=== PATIENT | male | born 1945 | race Caucasian/White ===

== ENCOUNTER → 2020-04-22 | Outpatient (CLI) | payer MEDICARE, OTHER ==
[~2020-04-22] MED LIST: ASPIR 8181 MG PO; ASPIRIN325 PO; CENTRUM SILVER1 EAC2 PO; DIABETA 1.25M1.25 M1; EFFIENT10 MG PO; GLUCOTROL5 MG PO; IMDUR 30 MG TAB30 M1 PO; JANUVIA100 MG PO; LOPRESSOR; LOPRESSOR50 PO; LOVASTATIN 20 M20 MG PO; MAGOX 400400 MG PO; METFORMIN HCL500 MG PO; NIACIN ER1000 MG PO; NITROGLYCERIN0.4 MG SUBLING; NORCO 5-325 TA1 EACH PO; OMEGA-31000 M1 PO; PERCOCET 5-3251 EACH PO; PIOGLITAZONE15 MG PO; REGLAN 10 MG TA10 MG PO; VITAMIN B-12500 MCG PO; VITAMIN D1000 UNI1 PO; VITAMINC500 PO; WELCHOL 625 MG625 MG PO; WELCHOL3.75 GM
--- NOTE | 2020-04-22 13:12 | 2DMMODE ---
[place] [address] 2 D/M-MODE ECHOCARDIOGRAM Name: KATIE FLORES Room: [facility]#: [id number] Admission: 04/22/20 Attend Phys: Jerry Kingsley Discharge: Date of : 45 Date of Service: 04/22/20 1311 Report #: [id number] THIS REPORT FOR: cc: Werner Kaur Gregory DO Blick,Bossman Lawson MD [facility] ~ APPROVED REPORT Study performed: 04/22/2020 09:44:54 EXAM: Comprehensive 2D, Doppler, and color-flow Echocardiogram Patient Location: Out-Patient BSA: 2.12 HR: 55 bpm BP: 120/72 mmHg Other Information Study Quality: Fair Indications CAD Hypertension/HDD 2D Dimensions IVSd: 11.32 (7-11mm) LVOT Diam: 20.45 (18-24mm) LVDd: 45.98 mm PWd: 8.80 (7-11mm) Ascending Ao: 28.06 (22-36mm) LVDs: 31.91 (25-40mm) Aortic Root: 34.34 mm Volumes Left Atrial Volume (Systole) LA ESV Index: 17.90 mL/m2 Aortic Valve AoV Peak Ashok.: 1.32 m/s AO Peak Gr.: 6.97 mmHg LVOT Max P.00 mmHg AO Mean Gr.: 3.34 mmHg LVOT Mean P.19 mmHg LVOT Max V: 1.12 m/s AO V2 VTI: 28.67 cm LVOT Mean V: 0.67 m/s JULIAN (VTI): 2.77 cm2 LVOT V1 VTI: 24.18 [place] [address] 2 D/M-MODE ECHOCARDIOGRAM Name: KATIE FLORES Room: [facility]#: [id number] Admission: 04/22/20 Attend Phys: Jerry Kingsley Discharge: Date of : 45 Date of Service: 04/22/20 1311 Report #: [id number] E/A Ratio: 1.00 MV Decel. Time: 213.41 ms MV E Max Ashok.: 0.81 m/s MV PHT: 61.89 ms MVA (PHT): 3.55 cm2 TDI E/Lateral E': 8.10 E/Medial E': 9.00 Medial E' Ashok.: 0.09 m/s Lateral E' Ashok.: 0.10 m/s Pulmonary Valve PV Peak Ashok.: 0.84 m/s PV Peak Gr.: 2.84 mmHg Left Ventricle The left ventricle is normal size. There is normal LV segmental wall motion. There is normal left ventricular wall thickness. Left ventricular systolic function is normal. The left ventricular ejection fraction is within the normal range. LVEF is 55-60%. Grade I - abnormal relaxation pattern. Right Ventricle The right ventricle is normal size. The right ventricular systolic function is normal. Atria The left atrium size is normal. The right atrium size is normal. Aortic Valve The aortic valve is normal in structure. No aortic regurgitation is present. There is no aortic valvular stenosis. Mitral Valve The mitral valve is normal in structure. There is trace mitral valve regurgitation noted. No evidence of mitral valve stenosis. Tricuspid Valve The tricuspid valve is normal in structure. There is trace tricuspid valve regurgitation noted. Pulmonic Valve Pulmonic valve is not well visualized. There is no pulmonic valvular regurgitation[place] [address] 2 D/M-MODE ECHOCARDIOGRAM Name: KATIE FLORES Room: [facility]#: [id number] Admission: 04/22/20 Attend Phys: Jerry Kingsley Discharge: Date of : 45 Date of Service: 04/22/20 1311 Report #: [id number] The aortic root is normal in size. IVC is normal in size and collapses >50% with inspiration. Pericardium There is no pericardial effusion. <Conclusion> Left ventricular systolic function is normal. The left ventricular ejection fraction is within the normal range. <ELECTRONICALLY SIGNED> By: Bossman Carrillo MD, [facility] 04/22/201310 10 10 Bossman Carrillo MD, [facility] /INF
== END ==
LOC: M.CRD 09:44
PROVIDERS: ATTEND Internal Medicine
DX: I25.10 Atherosclerotic heart disease of native coronary artery without angina pectoris (principal); I10 Essential (primary) hypertension; Z88.5 Allergy status to narcotic agent

== ENCOUNTER → 2020-11-03 | Outpatient (CLI) | payer MEDICARE, OTHER ==
--- NOTE | 2020-11-03 17:11 | CARDNUC ---
[place] [address] CARDIAC NUCLEAR IMAGING REPORT Name: KATIE FLORES Room: [facility]#: [id number] Admission: 11/03/20 Attend Phys: Dai Bangura, Discharge: Date of : 45 Date of Service: 11/03/20 1711 Report #: [id number] THIS REPORT FOR: cc: Werner Kaur Gregory DO Liston,Suraj Allen MD [facility] ~ APPROVED REPORT Study performed: 11/03/2020 14:21:15 Exam: Nuclear Stress Test Indication: Chest pain, dyspnea s/p PCI. Patient Location: Out-Patient Stress Tech: Ariadne Salas Stress Nurse: Dora Méndez R.N. Ht: 5 ft 10 in Wt: 200 lbs BSA: 2.09 m2 BMI: 28.69 Medical History Medical History: Chest pain, dyspnea, hypokalemia, bradycardia, CAD s/p stent, Hyperlipidemia, HTN, PAD, DM II, past smoker, slow/weak/unsteady gait, back pain, spinal stenosis. Medications: ASA 81 Mg, Clopidogrel, Lovastatin, NTG, Mag-Ox. Allergies: Hydrocodone. Cardiac Risk Factors: Age, DM, FHX of CAD, HTN, Hyperlipidemia, SOB, Past Smoker, PVD. Previous Cardiac Procedures: PCI 2017 Pretest Chest Pain Characteristics: No chest pain Exercise History: Sedentary Physical Disabilities: Weak/slow/unsteady gait. Meds Held (24 hrs): NTG. Stress Test Details Stress Test: Pharmacologic stress testing performed using 0.4 mg of regadenoson per 5 mL given IV over 10 seconds. Reason for pharmacologic stress test: Weak/slow/unsteady gait.. HR Resting HR: 71 bpm Max Heart Rate (APMHR): 145 bpm Max HR Achieved: 126 bpm Target HR (85% APMHR): 123 bpm % of APMHR: 86 Recovery HR: 114 [place] [address] CARDIAC NUCLEAR IMAGING REPORT Name: KATIE FLORES Room: [facility]#: [id number] Admission: 11/03/20 Attend Phys: Dai Bangura, Discharge: Date of : 45 Date of Service: 11/03/20 1711 Report #: [id number] Resting BP: 150/82 mmHg Max BP: 125/71 mmHg ECG Resting ECG: Sinus Rhythm Stress ECG: Sinus Tachycardia ST Change: None Arrhythmia: PACs and PVCs Recovery ECG: Sinus Rhythm Recovery ST Change: None Recovery Arrhythmia: PACs and PVCs Clinical Reason for Termination: Completed protocol Stress Symptoms: Lightheaded/fuzzy headed feeling, headache. Exercise duration: 00 min 00 sec Exercise capacity: 1.00 METs The patient tolerated Lexiscan infusion without significant cardiac symptoms. Nurse Comments A 75 year old male presented for a sitting Lexiscan r/t left sided chest pain, dyspnea s/p PCI. Test well tolerated. Recovery unremarkable. Patient was stable and stated he felt good when escorted to Nuclear Medicine for imaging. Stress ECG Conclusion The baseline twelve-lead EKG shows sinus rhythm with premature atrial and premature ventricular contractions. No significant ST segment abnormality was noted. EKGs obtained during and post Lexiscan infusion show sinus rhythm and sinus tachycardia with continued premature atrial and premature ventricular contractions. There were no significant ST segment changes when compared to baseline. NM EXAM: Myocardial Perfusion REST/STRESS Imaging Protocol: Rest Tc-99m/Stress Tc-99m 1 day Resting Data Rest SPECT myocardial perfusion imaging was performed in supine position 30 minutes following the intravenous injection of 10.3 mCi of Tc-99m Sestamibi. Time of rest injection: 12:35 The images were gated to evaluate regional wall motion and calculate left [place] [address] CARDIAC NUCLEAR IMAGING REPORT Name: KATIE FLORES Room: [facility]#: [id number] Admission: 11/03/20 Attend Phys: Dai Bangura, Discharge: Date of : 45 Date of Service: 11/03/20 1711 Report #: [id number] Administration Route: IV Administration Site: Left Arm Pharmacologic Stress Pharmacologic stress test was performed by injecting Regadenoson 0.4 mg IV push followed by the intravenous injection of 35.1 mCi of Tc-99m Sestamibi. Time of stress injection: 14:35 Administration Route: IV Administration Site: Left Arm Heart Rate at time of stress injection: 126 bpm. Gated Stress SPECT was performed 40 minutes after stress injection. The images were gated to evaluate regional wall motion and calculate left ventricular ejection fraction. Prone imaging was performed. Study Quality Study: Good Artifact: Mild Diaphragmatic artifact Study Data At rest, the left ventricular ejection fraction was 64%.. Post stress, the left ventricular ejection was 61%.. TID = 0.97. Perfusion Perfusion images obtained in the supine position at rest and post Lexiscan stress show a moderate sized region of photopenia of mild intensity that resolved with post-rest prone imaging suggesting diaphragmatic attenuation artifact. No other significant fixed or reversible defects are identified. Wall Motion Normal left ventricular wall motion. Nuclear Conclusion ECG Findings: negative for ischemia Clinical Findings: negative for ischemia Nuclear Findings: negative for ischemia Exercise Capacity: not assessed Left Ventricular Function: normal Risk Study: low Perfusion study show no defect to suggest infarct or ischemia. Left ventricular systolic function appears normal on gated studies. This [place] [address] CARDIAC NUCLEAR IMAGING REPORT Name: KATIE FLORES Room: [facility]#: [id number] Admission: 11/03/20 Attend Phys: Dai Bangura, Discharge: Date of : 45 Date of Service: 11/03/20 1711 Report #: [id number] <Conclusion> The baseline twelve-lead EKG shows sinus rhythm with premature atrial and premature ventricular contractions. No significant ST segment abnormality was noted. EKGs obtained during and post Lexiscan infusion show sinus rhythm and sinus tachycardia with continued premature atrial and premature ventricular contractions. There were no significant ST segment changes when compared to baseline. <ELECTRONICALLY SIGNED> By: Suraj Hilario MD, FACC 11/03/201710 10 10 Suraj Hilario MD, FACC /INF
== END ==
LOC: M.NUC 10-23 13:27
PROVIDERS: ATTEND Nurse Practitioner
DX: R00.0 Tachycardia, unspecified (principal); I25.10 Atherosclerotic heart disease of native coronary artery without angina pectoris